=== PATIENT | male | born 1980 | race Caucasian/White ===

== ENCOUNTER 2017-10-22 19:42 | Emergency (ER) | payer OTHER ==
--- NOTE | 2017-10-22 20:31 | EDM.PDOC ---
ED HPI GENERAL MEDICAL PROBLEM - General Chief Complaint: Lower Extremity Injury/Pain Stated Complaint: R LEG PAIN Time Seen by Provider: 10/22/17 20:15 Source of Information: Reports: Patient, RN History Limitations: Reports: No Limitations - History of Present Illness INITIAL COMMENTS - FREE TEXT/NARRATIVE: 37 yo male presents with some medial R leg tenderness. He has no SOB, pleuritic chest pain, leg swelling or redness. Has been traveling a lot over the past several days in a car. No hx of clotting issues. Read on the internet about his sx's and is concerned about DVT. Gets a little swelling in the R ankle by the end of the day lately that completely goes away by morning each day. Onset: Gradual Onset Date: 10/21/17 Duration: Hour(s): Location: Reports: Lower Extremity, Right Quality: Reports: Other (tenderness) Severity: Mild Improves with: Reports: None Worsens with: Reports: Other (? time) Context: Reports: Other (Recent road trip in auto) Associated Symptoms: Reports: No Other Symptoms Treatments SECURITIES DEALER: Reports: Other (see below) (none) right leg Pain Score (Numeric/FACES): 1 - Related Data Allergies Allergy/AdvReac Type Severity Reaction Status Date / Time meperidine [From Demerol] Allergy Other Verified 10/22/17 20:15 Home Meds: Home Meds Escitalopram Oxalate [Lexapro] 20 mg PO DAILY 10/22/17 [History] buPROPion [Wellbutrin XL] 300 mg PO DAILY 10/22/17 [History] Past Medical History HEENT History: Reports: Impaired Vision Cardiovascular History: Reports: Hypertension Musculoskeletal History: Reports: Fracture Psychiatric History: Reports: Anxiety - Infectious Disease History Infectious Disease History: Reports: Chicken Pox - Past Surgical History GI Surgical History: Reports: Appendectomy Musculoskeletal Surgical History: Reports: Other (See Below) Other Musculoskeletal Surgeries/Procedures:: right foot surgery Social & Family History - Tobacco Use Smoking Status *Q: Never Smoker - Caffeine Use Caffeine Use: Reports: Coffee - Recreational Drug Use Recreational Drug Use: No Review of Systems - Review of Systems Review Of Systems: See Below Constitutional: Reports: No Symptoms Respiratory: Reports: No Symptoms Cardiovascular: Reports: No Symptoms Musculoskeletal: Reports: Leg Pain (right, medial) Skin: Reports: No Symptoms Neurological: Reports: No Symptoms ED EXAM, GENERAL - Physical Exam Exam: See Below Exam Limited By: No Limitations General Appearance: Alert, WD/WN, No Apparent Distress Ear Exam: Bilateral Ear: Auricle Normal, Canal Normal Nose: Normal Inspection, Normal Mucosa, No Blood Throat/Mouth: Normal Inspection, Normal Lips, Normal Voice, No Airway Compromise Head: Atraumatic, Normocephalic Neck: Normal Inspection Respiratory/Chest: No Respiratory Distress, No Accessory Muscle Use Cardiovascular: Regular Rate, Rhythm Extremities: Normal Inspection, Normal Range of Motion, No Pedal Edema, Other ( Very minimal medial leg superficial tenderness. No change in color. No edema currently. ). No: Pedal Edema, Limited Range of Motion, Increased Warmth, Mottled, Pallor, Redness Neurological: Alert, Oriented, CN II-XII Intact, Normal Cognition Psychiatric: Normal Affect, Normal Mood Skin Exam: Warm, Dry, Intact, Normal Color, No Rash Lymphatic: No Adenopathy Course - Vital Signs Last Recorded V/S: Last Vital Signs Temp 36.8 C 10/22/17 20:11 Pulse 94 10/22/17 20:11 Resp 16 10/22/17 20:11 BP 157/103 H 10/22/17 20:11 Pulse Ox 96 10/22/17 20:11 Departure - Departure Time of Disposition: 20:37 Disposition: Home, Self-Care 01 Condition: Good Clinical Impression: Tenderness of right lower extremity - Discharge Information Referrals: PCP,None [Primary Care Provider] - Forms: ED Department Discharge Additional Instructions: Take ibuprofen 600 mg every 6 hrs with food. Elevate your legs as much as possible and avoid salt or salty foods. Stretch regularly. Recheck for worsening swelling or increased warmth of the right leg.
== END 2017-10-22 20:42 | disposition home or self-care (01) ==
LOC: JP.ED 19:42
DX: M79.604 Pain in right leg (principal); I10 Essential (primary) hypertension; Z79.899 Other long term (current) drug therapy; Z88.5 Allergy status to narcotic agent
CPT/HCPCS: 99283